=== PATIENT | male | born 1955 | race Two or more races ===

== ENCOUNTER 2022-09-23 11:30 | Outpatient (CLI) | payer MEDICARE, BC | END 2022-09-23 23:59 | disposition home or self-care (01) | LOC: MSC 11:30 | PROVIDERS: ATTEND Anesthesiology | DX: G89.4 Chronic pain syndrome (principal); M50.10 Cervical disc disorder with radiculopathy, unspecified cervical region; M19.011 Primary osteoarthritis, right shoulder; Z79.891 Long term (current) use of opiate analgesic ==

== ENCOUNTER 2022-10-03 09:25 | Outpatient (CLI) | payer MEDICARE, BC | END 2022-10-03 23:59 | disposition home or self-care (01) | LOC: LAB 09:25 | PROVIDERS: ATTEND Anesthesiology | DX: Z01.812 Encounter for preprocedural laboratory examination (principal); Z20.822 Contact with and (suspected) exposure to COVID-19 | CPT/HCPCS: U0003; C9803 ==

== ENCOUNTER 2022-10-07 07:12 | Day surgery (SDC) | payer MEDICARE, BC ==
[2022-10-07] MEDS ORDERED: ANESTHESIA TRAY IN PYXIS 1 EA TRAY MC ONE (07:31)
[2022-10-07] MEDS ORDERED: BUPIVACAINE MPF 0.5% W/EPI INJ 30 ML VIAL ONE (07:32)
[2022-10-07] MEDS ORDERED: methylPREDNISolone ACETATE 80 MG/ML VIAL ONE (07:32)
[2022-10-07] MEDS ORDERED: BUPIVACAINE 0.25% 75 MG/30 ML VIAL ONE (07:32)
[2022-10-07] MEDS ORDERED: LIDOCAINE HCL/MPF 1% 30 ML VIAL IJ ONE (07:32)
[2022-10-07] MEDS ORDERED: IOHEXOL 240MG/ML 50 ML IV ONE (07:32)
[2022-10-07] MEDS ORDERED: BETA ACET/BET NA PHOS MDV 6 MG/ML VIAL ONE (07:52)
[2022-10-07] MEDS ORDERED: DEXAMETHASONE SOD PHOSPHATE 4 MG/ML VIAL ONE (07:53)
[2022-10-07] MEDS ORDERED: DEXAMETHASONE SOD PHOSPHATE 10 MG/ML VIAL ONE (08:24)
[2022-10-07] MEDS ORDERED: MIDAZOLAM HCL 2 MG/2ML VIAL ONE (08:29)
== END 2022-10-07 10:15 | disposition home or self-care (01) ==
LOC: DS 07:12
PROVIDERS: ATTEND Anesthesiology
DX: M47.22 Other spondylosis with radiculopathy, cervical region (principal); I10 Essential (primary) hypertension; G89.29 Other chronic pain; Z98.890 Other specified postprocedural states; Z79.899 Other long term (current) drug therapy
CPT/HCPCS: 62321; 72040; J1100; J3490 ×2; J2250; Q9966; J0702; J1040; J7030

== ENCOUNTER 2022-11-11 11:55 | Outpatient (CLI) | payer MEDICARE, BC | END 2022-11-11 23:59 | disposition home or self-care (01) | LOC: MSC 11:55 | PROVIDERS: ATTEND Anesthesiology | DX: G89.4 Chronic pain syndrome (principal); M50.10 Cervical disc disorder with radiculopathy, unspecified cervical region; M47.22 Other spondylosis with radiculopathy, cervical region; M19.011 Primary osteoarthritis, right shoulder; Z79.891 Long term (current) use of opiate analgesic; Z79.899 Other long term (current) drug therapy; Z95.5 Presence of coronary angioplasty implant and graft; Z98.890 Other specified postprocedural states ==

== ENCOUNTER 2022-12-09 10:30 | Outpatient (CLI) | payer MEDICARE, BC | END 2022-12-09 23:59 | disposition home or self-care (01) | LOC: MSC 10:30 | PROVIDERS: ATTEND Anesthesiology | DX: G89.4 Chronic pain syndrome (principal); M50.10 Cervical disc disorder with radiculopathy, unspecified cervical region; M47.22 Other spondylosis with radiculopathy, cervical region; M19.011 Primary osteoarthritis, right shoulder; Z79.891 Long term (current) use of opiate analgesic; Z79.899 Other long term (current) drug therapy; Z95.5 Presence of coronary angioplasty implant and graft; Z98.890 Other specified postprocedural states ==

== ENCOUNTER 2023-01-06 11:47 | Outpatient (CLI) | payer MEDICARE, BC | END 2023-01-06 23:59 | disposition home or self-care (01) | LOC: MSC 11:47 | PROVIDERS: ATTEND Anesthesiology | DX: G89.4 Chronic pain syndrome (principal); M50.10 Cervical disc disorder with radiculopathy, unspecified cervical region; M47.22 Other spondylosis with radiculopathy, cervical region; M19.011 Primary osteoarthritis, right shoulder; Z79.891 Long term (current) use of opiate analgesic; Z79.899 Other long term (current) drug therapy ==

== ENCOUNTER 2023-02-03 11:50 | Outpatient (CLI) | payer MEDICARE, BC | END 2023-02-03 23:59 | disposition home or self-care (01) | LOC: MSC 11:50 | PROVIDERS: ATTEND Anesthesiology | DX: G89.4 Chronic pain syndrome (principal); M50.10 Cervical disc disorder with radiculopathy, unspecified cervical region; M47.22 Other spondylosis with radiculopathy, cervical region; M19.011 Primary osteoarthritis, right shoulder; Z79.891 Long term (current) use of opiate analgesic ==

== ENCOUNTER 2023-03-03 10:58 | Outpatient (CLI) | payer MEDICARE, BC | END 2023-03-03 23:59 | disposition home or self-care (01) | LOC: MSC 10:58 | PROVIDERS: ATTEND Anesthesiology | DX: G89.4 Chronic pain syndrome (principal); M50.10 Cervical disc disorder with radiculopathy, unspecified cervical region; M47.22 Other spondylosis with radiculopathy, cervical region; M19.011 Primary osteoarthritis, right shoulder; Z79.891 Long term (current) use of opiate analgesic ==

== ENCOUNTER 2023-03-31 11:06 | Outpatient (CLI) | payer MEDICARE, BC | END 2023-03-31 23:59 | disposition home or self-care (01) | LOC: MSC 11:06 | PROVIDERS: ATTEND Anesthesiology | DX: G89.4 Chronic pain syndrome (principal); M50.10 Cervical disc disorder with radiculopathy, unspecified cervical region; M47.22 Other spondylosis with radiculopathy, cervical region; M19.011 Primary osteoarthritis, right shoulder; Z79.891 Long term (current) use of opiate analgesic ==